=== PATIENT | female | born 1990 | race African-American/Black ===

== ENCOUNTER 2017-10-30 08:07 | Emergency (ER) | payer MEDICAID, OTHER ==
[~2017-10-30] VITALS: Ht 162.6 cm; Wt 113.4 kg
[2017-10-30 08:07] VITALS: BP_SYST 149
--- NOTE | 2017-10-30 08:07 | NUR ---
BROUGHT BACK TO BED #3 AND TRIAGED. REPORT GIVEN TO SATISH
--- NOTE | 2017-10-30 08:17 | NUR ---
Pt Awake, Alert and oriented. Pt stated that she feels "Flu like" symptoms for 2-3 days. Fatigue, and sore throat. Pt denies N/V/D, and cough. Pain 8/10 in throat. Pt states she took Advil because she felt warm, did not take her temp. Pt states she received Flu shot in Nov. No signs of injury or complaints of distress. Will continue to monitor.
--- NOTE | 2017-10-30 08:39 | NUR ---
ER at bedside examining patient.
--- NOTE | 2017-10-30 09:13 | NUR ---
Patient given written and verbal discharge instructions and verbalizes understanding. ER MD discussed with patient the results and treatment provided. Patient in stable condition. ID arm band removed. Rx Promethazine Hydrochloride with Codeine given. Patient educated on pain management and to follow up with PMD. Pain Scale 0/10. Opportunity for questions provided and answered.
[2017-10-30 09:16] VITALS: BP_SYST 149
== END 2017-10-30 09:16 | disposition home or self-care (01) ==
LOC: SED 08:07
DX: J06.9 Acute upper respiratory infection, unspecified (principal)
CPT/HCPCS: 99283

== ENCOUNTER 2021-08-19 00:59 | Emergency (ER) | payer OTHER ==
[~2021-08-19] VITALS: Ht 165.1 cm; Wt 158.8 kg
[2021-08-19 01:54] VITALS: BP_SYST 158
[2021-08-19] MEDS: HYDROcodone/ACETAMIN 10-325 MG TAB PO ONE (03:13)
--- NOTE | 2021-08-19 04:25 | NUR ---
Patient ambulatory to bed 4 for evaluation
--- NOTE | 2021-08-19 04:25 | NUR ---
Pt report received. Pt c/o pain to right inner elbow s/p fall at 2300 last night. Pt states "my arm is broke". Pt unable to move arm or bend at elbow r/t pain. No obvious deformities noted. Pt able to move RHA and wiggle fingers, cap refil < 3 sec to nail beds of RHA.
--- NOTE | 2021-08-19 06:00 | NUR ---
Dr. Irving at bedside to discuss x-ray results.
[2021-08-19] MEDS ORDERED: IBUP-1969 PO (06:10)
--- NOTE | 2021-08-19 07:10 | NUR ---
SLING applied to RUE. 2+ pulse noted. Capillary refill <2 seconds. Patient has ability to move ALL digits. Has sensation present to affected site. Skin color within normal limits. Applied for pain management control.
[2021-08-19 07:16] VITALS: BP_SYST 158
--- NOTE | 2021-08-19 07:16 | NUR ---
Patient given written and verbal discharge instructions and verbalizes understanding. ER MD discussed with patient the results and treatment provided. Patient in stable condition. ID arm band removed. Rx of MOTRIN given. Patient educated on pain management and to follow up with PMD. Pain Scale 10/10. Opportunity for questions provided and answered. Medication side effect fact sheet provided.
== END 2021-08-19 07:16 | disposition home or self-care (01) ==
LOC: SED 00:59
DX: M79.601 Pain in right arm (principal)
CPT/HCPCS: 73090; 99284